=== PATIENT | male | born 1990 ===

== ENCOUNTER 2021-09-04 05:34 | Outpatient (RCR) | payer SELFPAY ==
[~2021-09-04] VITALS: Ht 175.3 cm; Wt 103.0 kg
[~2021-09-04 05:34] MED LIST: PANT40TA52 PO; SUCR1TAB36 PO
== END 2021-09-04 13:46 | disposition home or self-care (01) ==
LOC: PREOP 05:34
PROVIDERS: ATTEND Surgery
DX: Z01.812 Encounter for preprocedural laboratory examination (principal); K21.9 Gastro-esophageal reflux disease without esophagitis; Z20.822 Contact with and (suspected) exposure to COVID-19
CPT/HCPCS: 87635

== ENCOUNTER 2021-09-08 11:01 | Day surgery (SDC) | payer OTHER ==
[~2021-09-08] VITALS: Ht 175.3 cm; Wt 103.0 kg
[2021-09-08] MEDS ORDERED: LACTATED RINGERS 1,000 ML IV ONE (11:08)
[2021-09-08] MEDS ORDERED: HURRICAINE EXT TUBE (BENZOCAINE) XX PRN (11:15)
[2021-09-08] MEDS ORDERED: LACTATED RINGERS 1,000 ML IV STA (11:55)
--- NOTE | 2021-09-08 12:12 | Progress Note-Pre Operative ---
Pre-Operative Progress Note H&P Reviewed The H&P was reviewed, patient examined and no changes noted. Date Seen by Provider: Sep 08, 2021 Time Seen by Provider: 12:10 Date H&P Reviewed: Sep 08, 2021 Time H&P Reviewed: 12:10 Pre-Operative Diagnosis: GERD and epigastric pain HALIE CONTRERAS DO Sep 08, 2021 12:12
[2021-09-08] MEDS ORDERED: MIDAZOLAM 2 MG/2 ML (VERSED) VIAL ONE (13:25)
[2021-09-08] MEDS ORDERED: PROPOFOL INJECTION 50 ML IV ONE (13:25)
[2021-09-08 13:51] VITALS: BP 106/58
--- NOTE | 2021-09-08 13:51 | Progress Note-Post Operative ---
Post-Operative Progess Note Surgeon (s)/Senior Advocate (s) Surgeon HALIE CONTRERAS DO Senior Advocate: na Pre-Operative Diagnosis GERD and epigastric pain Post-Operative Diagnosis gastritis Procedure & Operative Findings Date of Procedure 09/08/21 Procedure Performed/Findings egd c biopsies Anesthesia Type per spikemaking supervisor Estimated Blood Loss Estimated blood loss (mL): none Specimens/Packing Specimens Removed antrum ,body, ge HALIE CONTRERAS DO Sep 08, 2021 13:51
--- NOTE | 2021-09-08 13:53 | Discharge Inst-Simple/Standard ---
Discharge Inst-Standard Patient Instructions/Follow Up Plan of Care/Instructions/FU: 2 weeks guillermo Activity as Tolerated: Yes Discharge Diet: Regular Diet HALIE CONTRERAS DO Sep 08, 2021 13:53
[2021-09-08 13:56] VITALS: BP 99/61
--- NOTE | 2021-09-08 13:57 | Anesthesia-General Post-Op ---
MAC Patient Condition Mental Status/LOC: Same as Preop Cardiovascular: Satisfactory Nausea/Vomiting: Absent Respiratory: Satisfactory Pain: Controlled Complications: Absent Post Op Complications Complications None Follow Up Care/Instructions Patient Instructions None needed. Anesthesiology Discharge Order Discharge Order Patient is doing well, no complaints, stable vital signs, no apparent adverse anesthesia problems. No complications reported per nursing. TIERNEY HAUSER CRNA Sep 08, 2021 13:57
[2021-09-08 14:01] VITALS: BP 92/57
[2021-09-08 14:05] VITALS: BP 92/57
[2021-09-08 14:18] VITALS: BP 100/72
[2021-09-08 14:34] VITALS: BP 100/72
--- NOTE | 2021-09-08 21:43 | OPERATIVE REPORT ---
DATE OF SERVICE: 09/08/2021 PREOPERATIVE DIAGNOSES: Gastroesophageal reflux disease, epigastric abdominal pain. POSTOPERATIVE DIAGNOSIS: Gastritis. SURGEON: Halie Rudolph DO ANESTHESIA: Per DIRECTOR OF LEARNING. PROCEDURE: EGD with biopsies. ESTIMATED BLOOD LOSS: None. COMPLICATIONS: None. INDICATIONS: The patient is a 31-year-old male with epigastric abdominal pain and GERD symptoms. He understands risks and benefits of procedure and wished to proceed. Consent was signed in the chart. DESCRIPTION OF PROCEDURE: The patient was taken to endoscopy suite, placed in left lateral recumbent position. Timeout was performed. Scope was inserted in mouth, down the esophagus, stomach and into the duodenum without difficulty. There were no polyps, masses or ulcerations within the duodenum. Scope was slowly retracted back into the stomach where it was further insufflated. Evidence of gastritis throughout the stomach was present. Biopsy of the antrum and body were obtained. Scope was retroflexed noting no other pathology. Scope was returned to its normal position, slowly withdrawn to distal esophagus. Biopsy of the GE junction was obtained. No polyps, masses or ulcerations. Scope was slowly retracted back until completely removed. The patient tolerated procedure well without any complications, taken to recovery room in stable condition. RECOMMENDATIONS: The patient to continue on the Carafate and Protonix at this time. Await biopsy results. Further recommendations pending biopsy results. CC: Gurinder Barnard -- requested, unable to deliver. Job ID: [id number] DocumentID: [id number] Dictated Date: 09/08/2021 13:55:21 Automotive Sales Specialist Date: 09/08/2021 21:42:44 Dictated By: HALIE RUDOLPH DO
== END 2021-09-08 14:34 | disposition home or self-care (01) ==
LOC: ENDO 11:01
PROVIDERS: ATTEND Surgery
DX: K29.50 Unspecified chronic gastritis without bleeding (principal); K21.00 Gastro-esophageal reflux disease with esophagitis, without bleeding; Z79.899 Other long term (current) drug therapy; Z87.891 Personal history of nicotine dependence

== ENCOUNTER 2021-10-07 07:55 | Outpatient (RCR) | payer OTHER | END 2021-10-16 | disposition home or self-care (01) | LOC: LAB 07:55 | PROVIDERS: ATTEND Surgery | DX: A04.8 Other specified bacterial intestinal infections (principal) | CPT/HCPCS: 36415; 87338 ==